=== PATIENT | female | born 1985 | race American Indian/Alaskan Native ===

== ENCOUNTER 2018-09-14 21:53 | Emergency (ER) | payer MEDICAID ==
--- NOTE | 2018-09-14 23:00 | EDM.PDOC ---
ED HPI GENERAL MEDICAL PROBLEM - General Chief Complaint: General Stated Complaint: NOT FEELING GOOD Time Seen by Provider: 09/14/18 22:58 Source of Information: Reports: Patient, RN, RN Notes Reviewed History Limitations: Reports: No Limitations - History of Present Illness INITIAL COMMENTS - FREE TEXT/NARRATIVE: Pt to ER with c/o generalized body aches and fever. Patient states the symptoms began about 2 days ago. Admits to sore throat, fever, nausea. Denies diarrhea or cough. States she works at [employer] and there have been several illnesses there. She also has several children. States temp was up to 101.5. Took Ibuprofen, down to 99 now. 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 - Related Data Allergies Allergy/AdvReac Type Severity Reaction Status Date / Time No Known Allergies Allergy Verified 10/31/15 17:34 Home Meds: Home Meds Pnv With Ca,No.72/Iron,Carb/FA [ Plus Iron Tablet] 1 tab PO DAILY [History] Acetaminophen/oxyCODONE [Percocet 325-5 MG] 2 tab PO Q4H PRN #30 tablet [Rx] Docusate Sodium [Colace] 100 mg PO Q12H PRN #60 cap 11/03/15 [Rx] Ferrous Sulfate 325 mg PO TIDMEALS #90 tablet 11/03/15 [Rx] Ibuprofen [IJD: Ibuprofen] 800 mg PO Q8H PRN #30 tablet 11/03/15 [Rx] Past Medical History 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 Hematologic History: Reports: Anemia - Infectious Disease History Infectious Disease History: Reports: Hepatitis C - Past Surgical History Female Surgical History: Reports: Section Social & Family History - Family History Family Medical History: Noncontributory ED ROS GENERAL - Review of Systems Review Of Systems: ROS reveals no pertinent complaints other than HPI. ED EXAM, GENERAL - Physical Exam Exam: See Below Exam Limited By: No Limitations General Appearance: Alert, WD/WN, No Apparent Distress Eye Exam: Bilateral Eye: EOMI, Normal Inspection Ears: Normal External Exam, Normal Canal, Hearing Grossly Normal, Normal TMs Nose: Normal Inspection, Normal Mucosa, No Blood Throat/Mouth: Normal Lips, Normal Teeth, Normal Gums, Normal Voice, No Airway Compromise, Other (oropharynx erythematous without exudate) Head: Atraumatic, Normocephalic Neck: Normal Inspection, Supple, Non-Tender, Full Range of Motion Respiratory/Chest: No Respiratory Distress, Lungs Clear, Normal Breath Sounds, No Accessory Muscle Use, Chest Non-Tender Cardiovascular: Normal Peripheral Pulses, Regular Rate, Rhythm, No Edema, No Gallop, No JVD, No Murmur, No Rub Peripheral Pulses: 2+: Radial (L), Radial (R) GI/Abdominal: Normal Bowel Sounds, Soft, Non-Tender (Female) Exam: Deferred Rectal (Female) Exam: Deferred Back Exam: Normal Inspection, Full Range of Motion, NT Extremities: Normal Inspection, Normal Range of Motion, Non-Tender, Normal Capillary Refill, No Pedal Edema Neurological: Alert, Oriented, CN II-XII Intact, Normal Cognition, Normal Gait, Normal Reflexes, No Motor/Sensory Deficits Psychiatric: Normal Affect, Normal Mood Skin Exam: Warm, Dry, Intact, Normal Color, No Rash Lymphatic: No Adenopathy Course - Orders/Labs/Meds Orders: Active Orders 24 hr Category Date Time Status CULTURE STREP A CONFIRMATION [] Stat Lab 09/14/18 23:05 Results STREP SCRN A RAPID W CULT CONF [] Stat Lab 09/14/18 23:05 Results Labs: Rapid Strep: Negative Influenza A: Negative Influenza B: Negative Departure - Departure Time of Disposition: 23:27 Disposition: Home, Self-Care 01 Condition: Fair Clinical Impression: Generalized body aches Fever Qualifiers: Fever type: unspecified Qualified Code(s): R50.9 - Fever, unspecified - Discharge Information *PRESCRIPTION DRUG MONITORING PROGRAM REVIEWED*: No *COPY OF PRESCRIPTION DRUG MONITORING REPORT IN PATIENT HENRY: No Instructions: Fever, Adult, [id number] Forms: ED Department Discharge Additional Instructions: Continue to use Tylenol and/or Ibuprofen as directed for fever/body aches Drink plenty of water Rest Follow up with your primary care facility if no improvement - My Orders Last 24 Hours: My Active Orders 09/14/18 23:05 CULTURE STREP A CONFIRMATION [RM] Stat STREP SCRN A RAPID W CULT CONF [] Stat - Assessment/Plan Last 24 Hours: My Active Orders 09/14/18 23:05 CULTURE STREP A CONFIRMATION [] Stat STREP SCRN A RAPID W CULT CONF [] Stat
[2018-09-14 23:58] VITALS: BP 122/71
== END 2018-09-14 23:55 | disposition home or self-care (01) ==
LOC: DL.ED 21:53
DX: R50.9 Fever, unspecified (principal); R52 Pain, unspecified; Z79.899 Other long term (current) drug therapy
CPT/HCPCS: 87081; 87430; 87804; 99283

== ENCOUNTER 2018-09-18 10:03 | Emergency (ER) | payer MEDICAID ==
[2018-09-18 10:15] VITALS: BP 114/71
[2018-09-18 11:14] LABS: ANION GAP 16.8; CHLORIDE,CL 102 mmol/L (101-111); SODIUM,NA 137 mmol/L (135-145)
[2018-09-18] MEDS ORDERED: Potassium Chloride 10 MEQ Tab.ER PO ONE (11:55)
--- NOTE | 2018-09-18 12:26 | EDM.PDOC ---
ED HPI GENERAL MEDICAL PROBLEM - General Chief Complaint: Respiratory Problem Stated Complaint: BACK PAINS [id number] Time Seen by Provider: 09/18/18 11:48 Source of Information: Reports: Patient, RN, RN Notes Reviewed History Limitations: Reports: No Limitations - History of Present Illness INITIAL COMMENTS - FREE TEXT/NARRATIVE: Pt to Er with c/o body aches, cough, green sputum, sore throat, SOB at times. She states she was seen in the ER on Thursday and she feels she is worsening. She states the fever has been better since Thursday. Denies N/V/D. Onset: Gradual Upper Back Pain Score (Numeric/FACES): 9 - Related Data Allergies Allergy/AdvReac Type Severity Reaction Status Date / Time No Known Allergies Allergy Verified 09/18/18 10:15 Home Meds: Home Meds Ibuprofen [IJD: Ibuprofen] 800 mg PO Q8H PRN #30 tablet 11/03/15 [Rx] Past Medical History - Past Health History Medical/Surgical History: Denies Medical/Surgical History HEENT History: Reports: None Cardiovascular History: Reports: None Respiratory History: Reports: None Gastrointestinal History: Reports: None Genitourinary History: Reports: None [employer] History: Reports: , Spontaneous Musculoskeletal History: Reports: None Neurological History: Reports: None Psychiatric History: Reports: Other (See Below) Other 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 Endocrine/Metabolic History: Reports: None Hematologic History: Reports: Anemia Immunologic History: Reports: None Oncologic (Cancer) History: Reports: None Dermatologic History: Reports: None - Infectious Disease History Infectious Disease History: Reports: Chicken Pox, Hepatitis C - Past Surgical History Head Surgeries/Procedures: Reports: None Female Surgical History: Reports: Section Social & Family History - Family History Family Medical History: Noncontributory - Tobacco Use Smoking Status *Q: Never Smoker Second Hand Smoke Exposure: No - Caffeine Use Caffeine Use: Reports: Coffee, Soda - Recreational Drug Use Recreational Drug Use: No ED ROS GENERAL - Review of Systems Review Of Systems: ROS reveals no pertinent complaints other than HPI. ED EXAM, GENERAL - Physical Exam Exam: See Below Exam Limited By: No Limitations General Appearance: Alert, WD/WN, No Apparent Distress Eye Exam: Bilateral Eye: EOMI, Normal Inspection Ears: Normal External Exam, Hearing Grossly Normal Nose: Normal Inspection Throat/Mouth: Normal Inspection, Normal Oropharynx, Normal Voice, No Airway Compromise Head: Atraumatic, Normocephalic Neck: Normal Inspection, Supple, Non-Tender, Full Range of Motion Respiratory/Chest: No Respiratory Distress, Decreased Breath Sounds, Rales Cardiovascular: Normal Peripheral Pulses, Regular Rate, Rhythm, No Edema, No Gallop, No JVD, No Murmur, No Rub Peripheral Pulses: 2+: Radial (L), Radial (R) GI/Abdominal: Normal Bowel Sounds, Soft, Non-Tender (Female) Exam: Deferred Rectal (Female) Exam: Deferred Back Exam: Normal Inspection, Full Range of Motion, NT Extremities: Normal Inspection, Normal Range of Motion, Non-Tender, Normal Capillary Refill, No Pedal Edema Neurological: Alert, Oriented, CN II-XII Intact, Normal Cognition, Normal Gait, Normal Reflexes, No Motor/Sensory Deficits Psychiatric: Normal Affect, Normal Mood Skin Exam: Warm, Dry, Intact, Normal Color, No Rash Lymphatic: No Adenopathy Course - Vital Signs Last Recorded V/S: Last Vital Signs Temp 97.8 F 09/18/18 10:09 Pulse 115 H 09/18/18 10:09 Resp 20 09/18/18 10:09 BP 114/71 09/18/18 10:09 Pulse Ox 100 09/18/18 10:09 - Orders/Labs/Meds Orders: Active Orders 24 hr Category Date Time Status Chest 2V [CR] Urgent Exams 09/18/18 10:26 Taken Labs: Laboratory Tests 09/18/18 09/18/18 Range/Units 10:50 10:50 WBC 16.0 H (5.0-10.0) 10^3/uL RBC 4.31 (4.2-5.4) 10^6/uL Hgb 11.4 L D (12.0-16.0) g/dL Hct 34.8 L (37.0-47.0) % MCV 80.7 D (80-100) fL MCH 26.5 L (27.0-34.0) pg MCHC 32.8 L (33.0-35.0) g/dL Plt Count 234 D (150-450) 10^3/uL Neut % (Auto) 86.8 H (42.2-75.2) % Lymph % (Auto) 6.6 L (20.5-50.1) % [place] % (Auto) 6.4 (2-8) % Eos % (Auto) 0.1 L (1.0-3.0) % Baso % (Auto) 0.1 (0.0-1.0) % Sodium 137 (135-145) mmol/L Potassium 2.8 L (3.6-5.0) mmol/L Chloride 102 (101-111) mmol/L Carbon Dioxide 21.0 (21.0-31.0) mmol/L Anion Gap 16.8 BUN 15 (7-18) mg/dL Creatinine 0.7 (0.6-1.3) mg/dL Est Cr Clr Drug Dosing 90.88 mL/min Estimated GFR (MDRD) > 60 BUN/Creatinine Ratio 21.42 Glucose 79 (74-105) mg/dL Calcium 7.6 L (8.4-10.2) mg/dl Total Bilirubin 0.9 (0.2-1.0) mg/dL AST 47 H (10-42) IU/L ALT 79 H (10-60) IU/L Alkaline Phosphatase 143 H (42-121) IU/L Total Protein 7.8 (6.7-8.2) g/dl Albumin 2.7 L (3.2-5.5) g/dl Globulin 5.1 Albumin/Globulin Ratio 0.53 Meds: Medications Discontinued Medications Generic Name Dose Route Start Last Admin Trade Name Freq PRN Reason Stop Dose Admin Potassium Chloride 40 meq 09/18/18 11:55 09/18/18 12:00 Klor-Con 10 PO 09/18/18 11:56 40 meq ONETIME ONE Administration - Radiology Interpretation Free Text/Narrative:: Chest xray: LLL Pneumonia Suspicion nodular densities See rad report Departure - Departure Time of Disposition: 12:25 Disposition: Home, Self-Care 01 Condition: Fair Clinical Impression: Hypokalemia Pneumonia Qualifiers: Pneumonia type: due to unspecified organism Laterality: left Lung location: lower lobe of lung Qualified Code(s): J18.1 - Lobar pneumonia, unspecified organism - Discharge Information *PRESCRIPTION DRUG MONITORING PROGRAM REVIEWED*: No *COPY OF PRESCRIPTION DRUG MONITORING REPORT IN PATIENT HENRY: No Instructions: Community-Acquired Pneumonia, Adult, Knid-wz-Pixj Forms: ED Department Discharge Additional Instructions: RX: Doxycycline, Potassium chloride Drink plenty of fluids Follow up with your primary care facility for CT of chest Continue to use Tylenol and/or Ibuprofen as directed for fever, pain May use over the counter robitussin for cough - My Orders Last 24 Hours: My Active Orders 09/18/18 10:26 Chest 2V [CR] Urgent - Assessment/Plan Last 24 Hours: My Active Orders 09/18/18 10:26 Chest 2V [CR] Urgent
--- NOTE | 2018-09-18 13:20 | CR ---
Clinical history: 33-year-old female with cough and productive "green" sputum. Interpretation: Abnormal. 1. Asymmetric dense left lower lobe pneumonic like consolidation (infarct?) with associated ipsilateral dependent effusion. 2. Ill-defined nodular densities identified respectively in the right upper and lingular segment left upper lobes. 3. Normal cardiac silhouette and bony thorax. No alveolar edema. 4. Right lung chacko clear without dependent pleural effusion. CONCLUSION: Abnormal inflammatory process left lower lobe i.e. pneumonia. Note: *See comments regarding suspicious nodular densities above. Parenchymal lesion? Costochondral cartilage calcifications? Follow-up to include possible CT scan chest recommended.
== END 2018-09-18 12:31 | disposition home or self-care (01) ==
LOC: DL.ED 10:03
DX: J18.1 Lobar pneumonia, unspecified organism (principal); E87.6 Hypokalemia
CPT/HCPCS: 36415; 71046; 80053; 85025; 99285; A9270

== ENCOUNTER 2018-09-21 14:55 | Emergency (ER) | payer MEDICAID ==
[2018-09-21 15:31] VITALS: BP 143/98
--- NOTE | 2018-09-21 15:50 | EDM.PDOC ---
ED HPI GENERAL MEDICAL PROBLEM - General Chief Complaint: General Stated Complaint: COMING FROM A CT SCAN Time Seen by Provider: 09/21/18 15:30 Source of Information: Reports: Patient History Limitations: Reports: No Limitations - History of Present Illness INITIAL COMMENTS - FREE TEXT/NARRATIVE: This 33 yo female patient was sent to the ED from the [facility] Dr. Dorantes. The patient was seeing Dr. Dorantes for a follow-up for possible lung nodules observed while the patient was seen in the ED on 09/18/18. The patient reports she has noticed increased abdominal bloating for the past 2 days and has had increased pain in her upper thighs when she gets up to walk. The patient reports she has not done any drugs for the past month, but wanted to have a more in depth conversation regarding drug use when no other staff was around. The patient does report some shortness of breath with activity. The patient was started on Doxycycline on 09/18/18 for a left lower lobe pneumonia. Once all nursing, lab and radiology staff were cleared out of the patient's room, the patient reports that she used to use meth, but has not used any in the past month. Onset: Gradual Duration: Day(s):, Constant, Getting Worse Location: Reports: Generalized Quality: Reports: Other Severity: Moderate Improves with: Reports: None Worsens with: Reports: None Context: Reports: Other Associated Symptoms: Reports: Shortness of Breath, Other Bilateral Upper Thigh Pain Score (Numeric/FACES): 8 - Related Data Allergies Allergy/AdvReac Type Severity Reaction Status Date / Time No Known Allergies Allergy Verified 09/21/18 15:37 Home Meds: Home Meds Ibuprofen [IJD: Ibuprofen] 800 mg PO Q8H PRN #30 tablet 11/03/15 [Rx] Past Medical History - Past Health History Medical/Surgical History: Denies Medical/Surgical History HEENT History: Reports: None Cardiovascular History: Reports: None Respiratory History: Reports: None Gastrointestinal History: Reports: None Genitourinary History: Reports: None POULTRY BONER History: Reports: , Spontaneous Musculoskeletal History: Reports: None Neurological History: Reports: None Psychiatric History: Reports: Other (See Below) Other 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 Endocrine/Metabolic History: Reports: None Hematologic History: Reports: Anemia Immunologic History: Reports: None Oncologic (Cancer) History: Reports: None Dermatologic History: Reports: None - Infectious Disease History Infectious Disease History: Reports: Chicken Pox, Hepatitis C - Past Surgical History Head Surgeries/Procedures: Reports: None Female Surgical History: Reports: Section Social & Family History - Family History Family Medical History: Noncontributory - Tobacco Use Smoking Status *Q: Never Smoker - Caffeine Use Caffeine Use: Reports: Coffee, Soda - Recreational Drug Use Recreational Drug Use: No ED ROS GENERAL - Review of Systems Review Of Systems: ROS reveals no pertinent complaints other than HPI. ED EXAM, GENERAL - Physical Exam Exam: See Below Exam Limited By: No Limitations General Appearance: Alert, WD/WN, Moderate Distress Eye Exam: Bilateral Eye: EOMI, Normal Inspection, PERRL Ears: Normal External Exam, Normal Canal, Hearing Grossly Normal, Normal TMs Nose: Normal Inspection, Normal Mucosa, No Blood Throat/Mouth: Normal Inspection, Normal Lips, Normal Teeth, Normal Gums, Normal Oropharynx, Normal Voice, No Airway Compromise Head: Atraumatic, Normocephalic Neck: Normal Inspection, Supple, Non-Tender, Full Range of Motion Respiratory/Chest: No Respiratory Distress, Lungs Clear, Normal Breath Sounds, No Accessory Muscle Use, Chest Non-Tender Cardiovascular: Normal Peripheral Pulses, Regular Rate, Rhythm, No Edema, No Gallop, No JVD, No Murmur, No Rub GI/Abdominal: Normal Bowel Sounds, Soft, No Organomegaly, No Distention, No Abnormal Bruit, No Mass, Tender (suprapubic tenderness to palpation) (Female) Exam: Deferred Rectal (Female) Exam: Deferred Back Exam: Normal Inspection, Full Range of Motion, NT Extremities: Normal Inspection, Normal Range of Motion, Non-Tender, Normal Capillary Refill, No Pedal Edema Neurological: Alert, Oriented, CN II-XII Intact, Normal Cognition, Normal Gait, Normal Reflexes, No Motor/Sensory Deficits Psychiatric: Normal Affect, Normal Mood Skin Exam: Warm, Dry, Intact, Normal Color, No Rash Lymphatic: No Adenopathy Course - Vital Signs Last Recorded V/S: Last Vital Signs Temp 38.1 C 09/21/18 15:30 Pulse 124 H 09/21/18 15:30 Resp 20 09/21/18 15:30 BP 143/98 H 09/21/18 15:30 Pulse Ox 100 09/21/18 15:30 - Orders/Labs/Meds Orders: Active Orders 24 hr Category Date Time Status CULTURE BLOOD [BC] Stat Lab 09/21/18 15:47 Received CULTURE BLOOD [BC] Stat Lab 09/21/18 15:55 Received Piperacillin/Tazobactam [Zosyn] 3.375 gm Med 09/21/18 16:51 Ordered Sodium Chloride 0.9% [Normal Saline] 100 ml IV ONETIME Vancomycin 1 gm Med 09/21/18 16:51 Ordered Sodium Chloride 0.9% [Normal Saline] 250 ml IV ONETIME Medication Orders Piperacillin Sod/Tazobactam (Sod 3.375 gm/ Sodium Chloride) 100 mls @ 200 mls/ hr IV ONETIME ONE Stop: 09/21/18 17:20 Vancomycin HCl 1 gm/ Sodium (Chloride) 250 mls @ 167 mls/hr IV ONETIME ONE Stop: 09/21/18 18:20 Labs: Laboratory Tests 09/21/18 09/21/18 09/21/18 Range/Units 15:13 15:13 15:13 WBC (5.0-10.0) 10^3/uL RBC (4.2-5.4) 10^6/uL Hgb (12.0-16.0) g/dL Hct (37.0-47.0) % MCV (80-100) fL MCH (27.0-34.0) pg MCHC (33.0-35.0) g/dL Plt Count (150-450) 10^3/uL Neut % (Auto) (42.2-75.2) % Lymph % (Auto) (20.5-50.1) % [place] % (Auto) (2-8) % Eos % (Auto) (1.0-3.0) % Baso % (Auto) (0.0-1.0) % Add Manual Diff Neutrophils % (Manual) (42-75) % Band Neutrophils % % Lymphocytes % (Manual) (20-50) % Atypical Lymphs % % Monocytes % (Manual) (2-8) % Sodium (135-145) mmol/L Potassium (3.6-5.0) mmol/L Chloride (101-111) mmol/L Carbon Dioxide (21.0-31.0) mmol/L Anion Gap BUN (7-18) mg/dL Creatinine (0.6-1.3) mg/dL Est Cr Clr Drug Dosing mL/min Estimated GFR (MDRD) BUN/Creatinine Ratio Glucose (74-105) mg/dL Lactic Acid (0.5-2.2) mmol/L Calcium (8.4-10.2) mg/dl Total Bilirubin (0.2-1.0) mg/dL AST (10-42) IU/L ALT (10-60) IU/L Alkaline Phosphatase (42-121) IU/L Total Protein (6.7-8.2) g/dl Albumin (3.2-5.5) g/dl Globulin Albumin/Globulin Ratio Urine Color Yellow (YELLOW) Urine Appearance Slightly cloudy (CLEAR) Urine pH 7.0 (5.0-9.0) Ur Specific [place] 1.015 (1.005-1.030) Urine Protein 30 H (NEGATIVE) Urine Glucose (UA) Negative (NEGATIVE) Urine Ketones Negative (NEGATIVE) Urine Occult Blood Trace-intact H (NEGATIVE) Urine Nitrite Negative (NEGATIVE) Urine Bilirubin Negative (NEGATIVE) Urine Urobilinogen 2.0 H (0.2-1.0) mg/dL Ur Leukocyte Esterase Negative (NEGATIVE) Urine RBC 10-20 H /HPF Urine WBC 5-10 H (0-5/HPF) /HPF Ur Epithelial Cells Few /HPF Amorphous Sediment Rare (0/HPF) /HPF Urine Bacteria Rare (0-FEW/HPF) /HPF Urine Mucus Rare /LPF Urine HCG, Qual Negative Salicylates mg/dL Urine Opiates Screen Negative (NEGATIVE) Ur Oxycodone Screen Negative (NEGATIVE) Urine Methadone Screen Negative (NEGATIVE) Acetaminophen ug/mL Ur Barbiturates Screen Negative (NEGATIVE) U Tricyclic Antidepress Negative (NEGATIVE) Ur Phencyclidine Scrn Negative (NEGATIVE) Ur Amphetamine Screen Negative (NEGATIVE) U Methamphetamines Scrn Negative (NEGATIVE) Urine MDMA Screen Negative (NEGATIVE) U Benzodiazepines Scrn Negative (NEGATIVE) Urine Cocaine Screen Negative (NEGATIVE) U Marijuana (THC) Screen Negative (NEGATIVE) 09/21/18 09/21/18 09/21/18 Range/Units 15:47 15:47 15:47 WBC 11.7 H (5.0-10.0) 10^3/uL RBC 3.35 L (4.2-5.4) 10^6/uL Hgb 8.7 L D (12.0-16.0) g/dL Hct 27.1 L (37.0-47.0) % MCV 80.9 (80-100) fL MCH 26.0 L (27.0-34.0) pg MCHC 32.1 L (33.0-35.0) g/dL Plt Count 318 D (150-450) 10^3/uL Neut % (Auto) 77.6 H (42.2-75.2) % Lymph % (Auto) 13.5 L (20.5-50.1) % [place] % (Auto) 8.5 H (2-8) % Eos % (Auto) 0.3 L (1.0-3.0) % Baso % (Auto) 0.1 (0.0-1.0) % Add Manual Diff Yes Neutrophils % (Manual) 65 (42-75) % Band Neutrophils % 6 % Lymphocytes % (Manual) 21 (20-50) % Atypical Lymphs % 2 % Monocytes % (Manual) 6 (2-8) % Sodium (135-145) mmol/L Potassium (3.6-5.0) mmol/L Chloride (101-111) mmol/L Carbon Dioxide (21.0-31.0) mmol/L Anion Gap BUN (7-18) mg/dL Creatinine (0.6-1.3) mg/dL Est Cr Clr Drug Dosing mL/min Estimated GFR (MDRD) BUN/Creatinine Ratio Glucose (74-105) mg/dL Lactic Acid 1.0 (0.5-2.2) mmol/L Calcium (8.4-10.2) mg/dl Total Bilirubin (0.2-1.0) mg/dL AST (10-42) IU/L ALT (10-60) IU/L Alkaline Phosphatase (42-121) IU/L Total Protein (6.7-8.2) g/dl Albumin (3.2-5.5) g/dl Globulin Albumin/Globulin Ratio Urine Color (YELLOW) Urine Appearance (CLEAR) Urine pH (5.0-9.0) Ur Specific [place] (1.005-1.030) Urine Protein (NEGATIVE) Urine Glucose (UA) (NEGATIVE) Urine Ketones (NEGATIVE) Urine Occult Blood (NEGATIVE) Urine Nitrite (NEGATIVE) Urine Bilirubin (NEGATIVE) Urine Urobilinogen (0.2-1.0) mg/dL Ur Leukocyte Esterase (NEGATIVE) Urine RBC /HPF Urine WBC (0-5/HPF) /HPF Ur Epithelial Cells /HPF Amorphous Sediment (0/HPF) /HPF Urine Bacteria (0-FEW/HPF) /HPF Urine Mucus /LPF Urine HCG, Qual Salicylates < 4 mg/dL Urine Opiates Screen (NEGATIVE) Ur Oxycodone Screen (NEGATIVE) Urine Methadone Screen (NEGATIVE) Acetaminophen < 10 ug/mL Ur Barbiturates Screen (NEGATIVE) U Tricyclic Antidepress (NEGATIVE) Ur Phencyclidine Scrn (NEGATIVE) Ur Amphetamine Screen (NEGATIVE) U Methamphetamines Scrn (NEGATIVE) Urine MDMA Screen (NEGATIVE) U Benzodiazepines Scrn (NEGATIVE) Urine Cocaine Screen (NEGATIVE) U Marijuana (THC) Screen (NEGATIVE) 09/21/18 Range/Units 15:47 WBC (5.0-10.0) 10^3/uL RBC (4.2-5.4) 10^6/uL Hgb (12.0-16.0) g/dL Hct (37.0-47.0) % MCV (80-100) fL MCH (27.0-34.0) pg MCHC (33.0-35.0) g/dL Plt Count (150-450) 10^3/uL Neut % (Auto) (42.2-75.2) % Lymph % (Auto) (20.5-50.1) % [place] % (Auto) (2-8) % Eos % (Auto) (1.0-3.0) % Baso % (Auto) (0.0-1.0) % Add Manual Diff Neutrophils % (Manual) (42-75) % Band Neutrophils % % Lymphocytes % (Manual) (20-50) % Atypical Lymphs % % Monocytes % (Manual) (2-8) % Sodium 132 L (135-145) mmol/L Potassium 3.6 (3.6-5.0) mmol/L Chloride 102 (101-111) mmol/L Carbon Dioxide 19.0 L (21.0-31.0) mmol/L Anion Gap 14.6 BUN 13 (7-18) mg/dL Creatinine 0.6 (0.6-1.3) mg/dL Est Cr Clr Drug Dosing 105.83 mL/min Estimated GFR (MDRD) > 60 BUN/Creatinine Ratio 21.66 Glucose 94 (74-105) mg/dL Lactic Acid (0.5-2.2) mmol/L Calcium 7.1 L (8.4-10.2) mg/dl Total Bilirubin 0.6 (0.2-1.0) mg/dL AST 21 (10-42) IU/L ALT 28 (10-60) IU/L Alkaline Phosphatase 110 (42-121) IU/L Total Protein 6.9 (6.7-8.2) g/dl Albumin 2.0 L (3.2-5.5) g/dl Globulin 4.9 Albumin/Globulin Ratio 0.41 Urine Color (YELLOW) Urine Appearance (CLEAR) Urine pH (5.0-9.0) Ur Specific [place] (1.005-1.030) Urine Protein (NEGATIVE) Urine Glucose (UA) (NEGATIVE) Urine Ketones (NEGATIVE) Urine Occult Blood (NEGATIVE) Urine Nitrite (NEGATIVE) Urine Bilirubin (NEGATIVE) Urine Urobilinogen (0.2-1.0) mg/dL Ur Leukocyte Esterase (NEGATIVE) Urine RBC /HPF Urine WBC (0-5/HPF) /HPF Ur Epithelial Cells /HPF Amorphous Sediment (0/HPF) /HPF Urine Bacteria (0-FEW/HPF) /HPF Urine Mucus /LPF Urine HCG, Qual Salicylates mg/dL Urine Opiates Screen (NEGATIVE) Ur Oxycodone Screen (NEGATIVE) Urine Methadone Screen (NEGATIVE) Acetaminophen ug/mL Ur Barbiturates Screen (NEGATIVE) U Tricyclic Antidepress (NEGATIVE) Ur Phencyclidine Scrn (NEGATIVE) Ur Amphetamine Screen (NEGATIVE) U Methamphetamines Scrn (NEGATIVE) Urine MDMA Screen (NEGATIVE) U Benzodiazepines Scrn (NEGATIVE) Urine Cocaine Screen (NEGATIVE) U Marijuana (THC) Screen (NEGATIVE) Meds: Medications Generic Name Dose Route Start Last Admin Trade Name Freq PRN Reason Stop Dose Admin Piperacillin Sod/Tazobactam 100 mls @ 200 mls/hr 09/21/18 16:51 Sod 3.375 gm/ Sodium Chloride IV 09/21/18 17:20 ONETIME ONE Vancomycin HCl 1 gm/ Sodium 250 mls @ 167 mls/hr 09/21/18 16:51 Chloride IV 09/21/18 18:20 ONETIME ONE Departure - Departure Time of Disposition: 16:53 Disposition: Home, Self-Care 01 Condition: Poor Clinical Impression: Pleural effusion, Abdominal abscess Sepsis Qualifiers: Sepsis type: sepsis due to unspecified organism Qualified Code(s): A41.9 - Sepsis, unspecified organism - Discharge Information *PRESCRIPTION DRUG MONITORING PROGRAM REVIEWED*: Not Applicable *COPY OF PRESCRIPTION DRUG MONITORING REPORT IN PATIENT HENRY: Not Applicable Forms: Interfacility Transfer EMTALA Care Plan Goals: Discussed the patient's history, examination, treatments, CT results and symptoms with Dr. Meléndez. Dr. Meléndez accepted the patient for continued evaluation and treatment at [facility] in [place]. The patient will be transported by [facility]. - My Orders Last 24 Hours: My Active Orders 09/21/18 15:47 CULTURE BLOOD [BC] Stat 09/21/18 15:55 CULTURE BLOOD [BC] Stat 09/21/18 16:51 Piperacillin/Tazobactam [Zosyn] 3.375 gm Sodium Chloride 0.9% [Normal Saline] 100 ml IV ONETIME Vancomycin 1 gm Sodium Chloride 0.9% [Normal Saline] 250 ml IV ONETIME - Assessment/Plan Last 24 Hours: My Active Orders 09/21/18 15:47 CULTURE BLOOD [BC] Stat 09/21/18 15:55 CULTURE BLOOD [BC] Stat 09/21/18 16:51 Piperacillin/Tazobactam [Zosyn] 3.375 gm Sodium Chloride 0.9% [Normal Saline] 100 ml IV ONETIME Vancomycin 1 gm Sodium Chloride 0.9% [Normal Saline] 250 ml IV ONETIME
[2018-09-21 16:23] LABS: ANION GAP 14.6; CHLORIDE,CL 102 mmol/L (101-111); SODIUM,NA 132 mmol/L (135-145)
[2018-09-21 16:24] LABS: ACETAMINOPHEN < 10 ug/mL
[2018-09-21] MEDS ORDERED: Piperacillin/Tazobactam 3.375 GM in Sodium Chloride 0.9% 100 ML IV ONE (16:51)
== END 2018-09-21 17:46 | disposition home or self-care (01) ==
LOC: DL.ED 14:55
DX: A41.9 Sepsis, unspecified organism (principal); L02.211 Cutaneous abscess of abdominal wall; J90 Pleural effusion, not elsewhere classified
CPT/HCPCS: 36415; 80053; 80305-QW; 81001; 81025; 83605; 85025; 87040; 87077; 87186; 96365; 96368; 99283-25; G0480; J2543; J3370; J7050

== ENCOUNTER 2018-09-30 14:43 | Inpatient (IN) | payer MEDICAID ==
[2018-09-30] MEDS ORDERED: Acetaminophen 325 MG Tab PO PRN (16:17)
[2018-09-30] MEDS ORDERED: Ibuprofen 800 MG Tab PO PRN (16:17)
[2018-09-30] MEDS ORDERED: Ondansetron 4 MG Tab.DIS PO PRN (16:17)
[2018-09-30] MEDS: oxyCODONE 5 MG Tab PO PRN ×2 (16:37→21:28)
[2018-09-30] MEDS ORDERED: Alteplase 2 MG Vial IVPUSH PRN (16:37)
[2018-09-30] MEDS ORDERED: HYDROmorphone 0.5 MG/0.5 ML Syringe IVPUSH PRN (17:16)
[2018-09-30] MEDS ORDERED: diphenhydrAMINE 50 MG Cap PO ONE (17:23)
[2018-09-30] MEDS ORDERED: Triamcinolone Acetonide 0.1% Crm 15 GM Tube TOP SCH (21:00)
[2018-09-30] MEDS: Nafcillin 2 GM in Sodium Chloride 0.9% 100 ML IV SCH (21:27)
[2018-09-30] MEDS: Naproxen 500 MG Tab PO SCH (21:28)
[2018-09-30] MEDS: Triamcinolone Acetonide 0.1% Crm 15 GM Tube TOP SCH (21:29)
--- NOTE | 2018-10-01 00:17 | HP ---
HISTORY OF PRESENT ILLNESS: Nguyen is a 33-year-old woman who initially presented to the [facility] on 09/21/2018 with 48-hour history of abdominal bloating as well as fevers and chills and shortness of breath. She had been diagnosed on 09/18/2018 with pneumonia and placed on doxycycline. When she presented on the , ED doctor was able to determine that unfortunately, Nguyen is an IV drug user and had been using methamphetamine. She reported only having used 3 to 4 weeks prior to her presentation date. Workup done in the ER showed pelvic abscess as well as what appeared to be septic emboli to her lungs. She was transferred to [facility] for further workup and evaluation. At [facility], she was found to have septic pulmonary emboli as well as suprapubic abscess and concerning findings on her echocardiogram for possible occult endocarditis. She was placed on IV nafcillin and IV vancomycin. Just prior to her discharge to [facility] here, her blood cultures had come up negative, so the vancomycin was discontinued. She was sent to [facility] today for a 6-week course of IV nafcillin as well as careful monitoring of her other medical issues. Nguyen reports that other than the pain from the drainage tube from her abdomen that she has, she is overall feeling well. She is still feeling quite tired. I do note in her chart as well that she has had a chronic normocytic anemia. I do not see any recent iron studies or any other studies to determine what the source of this is. PAST MEDICAL HISTORY: 1. 7, para 6-1-0-7, section x7. 2. Noted hepatitis C identified at this last admission. 3. Nguyen does not report any past history of mental health issues including anxiety or depression. 4. As stated above, she does admit to a significant past history of polysubstance abuse, including methamphetamine via IV and pain medication. PAST SURGICAL HISTORY: section x7. SOCIAL HISTORY: Nguyen lives in [place] and up into her hospitalization had 1 baby living with her. Her other children live with their grandmother. She was prior to her hospitalization in rehab and doing court-ordered rehab. Nguyen is very concerned about being able to see her children, we have already reassured her that we will make all attempts to keep that a very lively part of her admission here. FAMILY HISTORY: Mother has diabetes. She does not report any significant past history of heart disease. REVIEW OF SYSTEMS: Nguyen does not report any new review of systems over the last 2 days, as stated in the HPI, she has been feeling well. PHYSICAL EXAMINATION: Vital Signs: Blood pressure is 125/68, pulse is 100, respiratory rate 20, O2 saturations 100% on room air and temperature is afebrile. Weight is 59.2 kg. General: Nguyen is a 33-year-old woman in no acute distress. She is alert and oriented x3. HEENT: Oropharynx is clear. Mucous membranes are moist. ASSESSMENT: 1. A 33-year-old woman with noted recent history of suprapubic abscess as well as septic emboli, blood cultures have been positive for methicillin sensitive Staph aureus. 2. Status post IR drainage of abscess with drainage tube in place. 3. Chronic anemia, normocytic, most likely secondary to hemolysis as well as nutritional factors. 4. Recent history of IV drug use, most likely the source of problems identified in #1. 5. Acute hepatitis C infection. 6. Acute hepatitis A infection. PLAN: 1. She is admitted to [facility] today. 2. We are receiving orders from Infectious Disease for her nafcillin, IV q.4 hours via PICC line. 3. Ibuprofen/acetaminophen ordered for fever and pain. 4. Oxycodone 5 mg q.4 hours is also ordered for pain, as she does have a known pelvic abscess which has a drainage tube in place. 5. As stated above, chart review from [facility] shows that her most recent blood culture was negative, I do note that she had an elevated sed rate and CRP, we will repeat those tomorrow morning. 6. In order to better identify the source of her chronic anemia, I will send out iron studies as well as a folate and B12 level. It is very likely that the IV drug use was causing a hemolysis that has significantly contributed to this, but if there is any nutritional component, we should be able to correct that while she is inpatient here. 7. She has been on ferrous sulfate for the past 10 days during her hospitalization at [facility], I do think we will switch to an every other day format to see if she is absorbing that any better. 8. I have ordered a dietary consult to see if they have any thoughts regarding her diet to see if we can help replace any nutritional deficiencies 9. As stated above, I discussed with Nguyen that she needs to be open with us regarding any depression or anxiety as well as her frustrations. A 6-week hospitalization for IV antibiotics will most likely be stressful for her, especially with her recent attempts to get off her polysubstance abuse. I do think social insurance analyst can be very helpful in this instance, making sure that Nguyen has good contact with her family, and is not feeling isolated. I would highly encourage them to stay closely involved with her case to assist us with this. [facility] /[id number] EDELMIRA
[2018-10-01] MEDS: Nafcillin 2 GM in Sodium Chloride 0.9% 100 ML IV SCH ×4 (00:57→14:39)
[2018-10-01] MEDS: oxyCODONE 5 MG Tab PO PRN ×4 (08:10→20:32)
[2018-10-01] MEDS: Naproxen 500 MG Tab PO SCH ×2 (08:10→20:32)
[2018-10-01] MEDS: Triamcinolone Acetonide 0.1% Crm 15 GM Tube TOP SCH ×2 (08:16→21:48)
[2018-10-01] MEDS ORDERED: HYDROmorphone 0.5 MG/0.5 ML Syringe IVPUSH PRN (08:30)
[2018-10-01] MEDS ORDERED: Ondansetron 4 MG Tab.DIS PO PRN (08:30)
[2018-10-01] MEDS ORDERED: Ibuprofen 800 MG Tab PO PRN (08:30)
[2018-10-01] MEDS ORDERED: diphenhydrAMINE 50 MG Cap PO ONE (10:15)
[2018-10-01] MEDS: Acetaminophen 325 MG Tab PO PRN (12:17)
[2018-10-01] MEDS: Sodium Chloride 0.9% 10 ML Syringe FLUSH PRN ×3 (15:55→22:19)
[2018-10-01] MEDS: ceFAZolin 2 GM in Premix Bag 1 BAG IV SCH ×2 (15:55→21:44)
[2018-10-01] MEDS ORDERED: diphenhydrAMINE 25 MG Tab PO ONE (22:06)
[2018-10-02] MEDS: ceFAZolin 2 GM in Premix Bag 1 BAG IV SCH (05:35)
[2018-10-02] MEDS: oxyCODONE 5 MG Tab PO PRN ×3 (08:53→17:15)
[2018-10-02] MEDS: Naproxen 500 MG Tab PO SCH ×2 (08:53→20:36)
[2018-10-02] MEDS: Triamcinolone Acetonide 0.1% Crm 15 GM Tube TOP SCH ×2 (08:56→20:39)
[2018-10-02] MEDS: Ferrous Sulfate 325 MG Tab PO SCH (08:58)
[2018-10-02] MEDS ORDERED: DAPTOmycin 500 MG Vial IV SCH (09:30)
[2018-10-02 10:08] LABS: ANION GAP 12.4; CHLORIDE,CL 104 mmol/L (101-111); SODIUM,NA 133 mmol/L (135-145)
[2018-10-02] MEDS: Sodium Chloride 0.9% 10 ML Syringe FLUSH PRN ×2 (11:28→20:43)
[2018-10-02] MEDS ORDERED: diphenhydrAMINE 25 MG Tab PO ONE (13:09)
[2018-10-03] MEDS: Naproxen 500 MG Tab PO SCH ×2 (09:48→22:18)
[2018-10-03] MEDS: Triamcinolone Acetonide 0.1% Crm 15 GM Tube TOP SCH ×2 (09:48→22:20)
[2018-10-03] MEDS: oxyCODONE 5 MG Tab PO PRN ×4 (10:23→22:18)
[2018-10-03] MEDS: Sodium Chloride 0.9% 10 ML Syringe FLUSH PRN (11:57)
[2018-10-04] MEDS: Naproxen 500 MG Tab PO SCH ×2 (08:13→22:30)
[2018-10-04] MEDS: oxyCODONE 5 MG Tab PO PRN ×4 (08:13→22:31)
[2018-10-04] MEDS: Triamcinolone Acetonide 0.1% Crm 15 GM Tube TOP SCH ×2 (08:14→22:30)
--- NOTE | 2018-10-04 09:12 | PN ---
DATE: 10/01/2018 SUBJECTIVE: I was called to see Nguyen this morning as she had developed a full body macular rash. I did note that she had a small rash around the area of her PICC line yesterday when she was admitted, but it appeared to be more of a reaction to the bandage than anything else. However, over the night, the rash did spread to the rest of her body and it is severely itchy. She is not having any shortness of breath or any vomiting. OBJECTIVE: Vital Signs: This morning were stable. She is afebrile. General: Nguyen is a 33-year-old woman, in no acute distress. As stated above, she has a macular rash throughout almost every area of her body. There is no wheal or flare formation noted. Her breathing is comfortable at this time. ASSESSMENT: A 33-year-old woman here in swing bed for IV treatment of bilateral septic emboli of the lungs as well as persistent abscess of the abdomen. PLAN: I did talk to Infectious Disease to [facility] in [place], they recommended discontinuing the nafcillin and starting her on Ancef, 2 g every 8 hours IV. Those orders were made. We will continue to use some diphenhydramine and some triamcinolone cream to help with her rash. Fortunately, the nafcillin half-life is very short, so that should resolve fairly quickly for her. [facility] /[id number]
[2018-10-04] MEDS: Ferrous Sulfate 325 MG Tab PO SCH (09:23)
[2018-10-04] MEDS ORDERED: Iopamidol 612 MG/ML 75 ML Bottle IVPUSH ONE (18:02)
[2018-10-04] MEDS: Acetaminophen 325 MG Tab PO PRN (18:18)
[2018-10-04 18:40] LABS: ANION GAP 13.5; CHLORIDE,CL 105 mmol/L (101-111); SODIUM,NA 136 mmol/L (135-145)
[2018-10-05] MEDS: Triamcinolone Acetonide 0.1% Crm 15 GM Tube TOP SCH ×2 (09:29→21:32)
[2018-10-05] MEDS: oxyCODONE 5 MG Tab PO PRN ×4 (09:30→22:47)
[2018-10-05] MEDS: Naproxen 500 MG Tab PO SCH ×2 (09:30→21:32)
[2018-10-05] MEDS: Sodium Chloride 0.9% 10 ML Syringe FLUSH PRN (11:15)
[2018-10-06] MEDS: oxyCODONE 5 MG Tab PO PRN ×4 (06:19→21:23)
[2018-10-06] MEDS: Triamcinolone Acetonide 0.1% Crm 15 GM Tube TOP SCH ×2 (09:29→20:16)
[2018-10-06] MEDS: Naproxen 500 MG Tab PO SCH ×2 (09:30→20:16)
[2018-10-06] MEDS: Sodium Chloride 0.9% 10 ML Syringe FLUSH PRN (09:34)
[2018-10-06] MEDS: Ferrous Sulfate 325 MG Tab PO SCH (10:13)
[2018-10-07] MEDS: oxyCODONE 5 MG Tab PO PRN ×3 (08:57→19:34)
[2018-10-07] MEDS: Naproxen 500 MG Tab PO SCH ×2 (08:57→21:04)
[2018-10-07] MEDS: Triamcinolone Acetonide 0.1% Crm 15 GM Tube TOP SCH ×2 (08:58→21:07)
[2018-10-07] MEDS: Sodium Chloride 0.9% 10 ML Syringe FLUSH PRN ×2 (12:29→21:04)
[2018-10-08] MEDS: oxyCODONE 5 MG Tab PO PRN ×2 (09:25→13:58)
[2018-10-08] MEDS: Naproxen 500 MG Tab PO SCH (09:25)
[2018-10-08] MEDS: Ferrous Sulfate 325 MG Tab PO SCH (09:26)
[2018-10-08] MEDS: Triamcinolone Acetonide 0.1% Crm 15 GM Tube TOP SCH (09:28)
[2018-10-08 10:17] VITALS: BP 115/68
[2018-10-08] MEDS: Sodium Chloride 0.9% 10 ML Syringe FLUSH PRN (12:29)
--- NOTE | 2018-10-08 16:30 | PCM.DCSUM1 ---
Discharge Summary - Hospital Course Free Text/Narrative:: Ms Figueroa is a 33-year-old female with past medical history significant for IV drug use presented initially to help her clinic on 09/21/2018 with abdominal pain and bloating fevers and chills and shortness of breath. Prior to that she was treated for pneumonia with doxycycline. On her presentation she was found to have pelvic abscess and septic emboli to the lungs. She was initially sent to [facility] was later discharged on IV antibiotics. There is concern for infective endocarditis on echo cardiogram. Patient was admitted to [facility] hospital bed for IV antibiotics. Patient was seen by ID today, and PICC line was pulled. Patient will be discharged home, with plans for her to come back daily to get antibiotics to finish her course. - Discharge Data Discharge Date: 10/08/18 Discharge Disposition: Home, Self-Care 01 Condition: Good - Patient Summary/Data Consults: Consultations 10/01/18 09:00 Consult to Dietary [Consult to Medical Charge Entry Specialist] [CONS] Routine - Discharge Plan *PRESCRIPTION DRUG MONITORING PROGRAM REVIEWED*: No *COPY OF PRESCRIPTION DRUG MONITORING REPORT IN PATIENT HENRY: No Home Medications: Home Meds Ferrous Sulfate 325 mg PO BIDMEALS 09/30/18 [History] Ferrous Sulfate 325 mg PO Q48H tablet 10/08/18 [Rx] Ibuprofen [Motrin] 800 mg PO Q8HR PRN tablet 10/08/18 [Rx] - Discharge Summary/Plan Comment DC Time >30 min.: Yes - General Info Date of Service: 10/08/18 Admission Dx/Problem (Free Text: Septic emboli - Review of Systems General: Reports: No Symptoms HEENT: Reports: No Symptoms Pulmonary: Reports: No Symptoms Cardiovascular: Reports: No Symptoms Gastrointestinal: Reports: No Symptoms Genitourinary: Reports: No Symptoms Musculoskeletal: Reports: No Symptoms Skin: Reports: No Symptoms Neurological: Reports: No Symptoms Psychiatric: Reports: No Symptoms - Patient Data Vitals - Most Recent: Last Vital Signs Temp 36.9 C 10/08/18 08:00 Pulse 78 10/08/18 08:00 Resp 20 10/08/18 08:00 BP 115/68 10/08/18 08:00 Pulse Ox 100 10/08/18 08:00 Weight - Most Recent: 65.544 kg I&O - Last 24 hours: Intake & Output 10/08/18 10/08/18 10/08/18 06:59 14:59 22:59 Intake Total 170 Balance 170 Lab Results - Last 24 hrs: Laboratory Results - last 24 hr 10/08/18 10/08/18 10/08/18 Range/Units 05:45 05:45 05:45 WBC 5.6 (5.0-10.0) 10^3/uL RBC 2.70 L (4.2-5.4) 10^6/uL Hgb 7.1 L (12.0-16.0) g/dL Hct 24.0 L (37.0-47.0) % MCV 88.9 (80-100) fL MCH 26.3 L (27.0-34.0) pg MCHC 29.6 L (33.0-35.0) g/dL Plt Count 606 H D (150-450) 10^3/uL Neut % (Auto) 62.7 (42.2-75.2) % Lymph % (Auto) 27.3 (20.5-50.1) % [place] % (Auto) 7.3 (2-8) % Eos % (Auto) 2.0 (1.0-3.0) % Baso % (Auto) 0.7 (0.0-1.0) % ESR 99 H (0-20) mm/hr Creatinine 0.6 (0.6-1.3) mg/dL Est Cr Clr Drug Dosing 121.13 mL/min Estimated GFR (MDRD) > 60 ALT 29 (10-60) IU/L Creatine Kinase (26-174) IU/L C-Reactive Protein 0.9 (0.0-1.3) mg/dL 10/08/18 Range/Units 05:45 WBC (5.0-10.0) 10^3/uL RBC (4.2-5.4) 10^6/uL Hgb (12.0-16.0) g/dL Hct (37.0-47.0) % MCV (80-100) fL MCH (27.0-34.0) pg MCHC (33.0-35.0) g/dL Plt Count (150-450) 10^3/uL Neut % (Auto) (42.2-75.2) % Lymph % (Auto) (20.5-50.1) % [place] % (Auto) (2-8) % Eos % (Auto) (1.0-3.0) % Baso % (Auto) (0.0-1.0) % ESR (0-20) mm/hr Creatinine (0.6-1.3) mg/dL Est Cr Clr Drug Dosing mL/min Estimated GFR (MDRD) ALT (10-60) IU/L Creatine Kinase 21 L (26-174) IU/L C-Reactive Protein (0.0-1.3) mg/dL Med Orders - Current: Current Medications Acetaminophen (Tylenol) 650 mg PO Q4HR PRN PRN Reason: Pain (Mild 1-3)/fever Last Admin: 10/04/18 18:18 Dose: 650 mg Alteplase, Recombinant (Cathflo Activase) 2 mg IVPUSH ONETIME PRN PRN Reason: IV Use Ferrous Sulfate (Ferrous Sulfate) 325 mg PO Q48H [facility] Last Admin: 10/08/18 09:26 Dose: 325 mg Hydromorphone HCl (Dilaudid) 0.5 mg IVPUSH Q4HR PRN PRN Reason: Pain (severe 7-10) Daptomycin 360 mg/ Sodium (Chloride) 50 mls @ 100 mls/hr IV Q24H [facility] Last Infusion: 10/08/18 13:00 Dose: Infused Ibuprofen (Motrin) 800 mg PO Q8HR PRN PRN Reason: Pain (mild 1-3), use 2nd Last Admin: 10/04/18 14:00 Dose: 800 mg Naproxen (Naprosyn) 500 mg PO Q12HR [facility] Last Admin: 10/08/18 09:25 Dose: 500 mg Ondansetron HCl (Zofran Odt) 4 mg PO Q6HR PRN PRN Reason: nausea, able to take PO Oxycodone HCl (Oxycodone) 5 mg PO Q4HR PRN PRN Reason: Pain (moderate 4-6) Last Admin: 10/08/18 13:58 Dose: 5 mg Senna/Docusate Sodium (Senna Plus) 1 tab PO BEDTIME PRN PRN Reason: Constipation Sodium Chloride (Saline Flush) 10 ml FLUSH ASDIRECTED PRN PRN Reason: Keep Vein Open Last Admin: 10/08/18 12:29 Dose: 10 ml Triamcinolone Acetonide (Triamcinolone Acetonide 0.1% Crm) 0 gm TOP BID [facility] Last Admin: 10/08/18 09:28 Dose: Not Given Discontinued Medications Acetaminophen (Tylenol) 650 mg PO Q4H PRN PRN Reason: Pain (Mild 1-3)/fever Daptomycin (Cubicin) 360 mg 6 mg/kg (360 mg) IV Q24H [facility] Last Admin: 10/02/18 09:47 Dose: Not Given Diphenhydramine HCl (Benadryl) 50 mg PO ONETIME ONE Stop: 09/30/18 17:24 Last Admin: 09/30/18 18:04 Dose: 50 mg Diphenhydramine HCl (Benadryl) 50 mg PO ONETIME ONE Stop: 10/01/18 10:16 Last Admin: 10/01/18 10:34 Dose: 50 mg Diphenhydramine HCl (Benadryl) 25 mg PO ONETIME ONE Stop: 10/01/18 22:07 Last Admin: 10/01/18 22:18 Dose: 25 mg Diphenhydramine HCl (Benadryl) 25 mg PO ONETIME ONE Stop: 10/02/18 13:10 Last Admin: 10/02/18 13:13 Dose: 25 mg Hydromorphone HCl (Dilaudid) 0.5 mg IVPUSH Q4H PRN PRN Reason: Pain Nafcillin Sodium 2 gm/ Sodium (Chloride) 100 mls @ 100 mls/hr IV Q4H [facility] Last Admin: 10/01/18 05:17 Dose: 100 mls/hr Nafcillin Sodium 2 gm/ Sodium (Chloride) 100 mls @ 100 mls/hr IV Q4HR [facility] Last Admin: 10/01/18 14:39 Dose: Not Given Cefazolin Sodium/Dextrose 2 gm (/ Premix) 50 mls @ 100 mls/hr IV Q8HR [facility] Last Admin: 10/02/18 05:35 Dose: Not Given Daptomycin 360 mg/ Sodium (Chloride) 50 mls @ 100 mls/hr IV Q24H [facility] Last Admin: 10/05/18 11:10 Dose: 100 mls/hr Daptomycin 360 mg/ Sodium (Chloride) 50 mls @ 100 mls/hr IV Q24H [facility] Last Admin: 10/07/18 12:15 Dose: Not Given Daptomycin 360 mg/ Sodium (Chloride) 50 mls @ 100 mls/hr IV Q24H [facility] Ibuprofen (Motrin) 800 mg PO Q8H PRN PRN Reason: Pain (mild 1-3) Last Admin: 09/30/18 19:12 Dose: 800 mg Iopamidol (Isovue-300 (61%)) 75 ml IVPUSH ONETIME ONE Stop: 10/04/18 18:03 Last Admin: 10/04/18 18:10 Dose: 75 ml Ondansetron HCl (Zofran Odt) 4 mg PO Q6H PRN PRN Reason: nausea, able to take PO Oxycodone HCl (Oxycodone) 5 mg PO Q4H PRN PRN Reason: Pain (moderate 4-6) Last Admin: 10/01/18 08:10 Dose: 5 mg Triamcinolone Acetonide (Triamcinolone Acetonide 0.1% Crm) 0 gm TOP BID [facility] - Exam General: Reports: Alert, Oriented Lungs: Reports: Clear to Auscultation, Normal Respiratory Effort Cardiovascular: Reports: Regular Rate, Regular Rhythm GI/Abdominal Exam: Normal Bowel Sounds, Soft, Non-Tender Skin: Reports: Warm, Dry, Intact Neurological: Reports: No New Focal Deficit Psy/Mental Status: Reports: Alert, Normal Affect
== END 2018-10-08 17:00 | disposition home or self-care (01) | DRG 757 ==
LOC: UNDOADMIN 15:13 → DL.MS 15:13 → EEVIPCON 16:17
PROVIDERS: ADMIT Family Medicine; ATTEND Internal Medicine
DX: N73.9 Female pelvic inflammatory disease, unspecified (principal); I26.90 Septic pulmonary embolism without acute cor pulmonale; D58.9 Hereditary hemolytic anemia, unspecified; B17.10 Acute hepatitis C without hepatic coma; B15.9 Hepatitis A without hepatic coma; D53.9 Nutritional anemia, unspecified
CPT/HCPCS: 36415; 74177; 80048; 82550; 82565; 82607; 82728; 82746; 83540; 83550; 84460; 85018; 85025; 85651; 86140; 86592; 87389; A9270-GY; J0690; J0878; J7050; Q0163; Q9967; S0032

== ENCOUNTER 2018-11-05 19:16 | Emergency (ER) | payer MEDICAID ==
[2018-11-05 19:37] VITALS: BP 127/73
== END 2018-11-06 01:18 | disposition left against medical advice (07) ==
LOC: DL.ED 19:16
DX: Z53.21 Procedure and treatment not carried out due to patient leaving prior to being seen by health care provider (principal)

== ENCOUNTER 2018-11-06 11:06 | Emergency (ER) | payer MEDICAID ==
--- NOTE | 2018-11-06 11:47 | EDM.PDOC ---
ED HPI GENERAL MEDICAL PROBLEM - General Chief Complaint: General Stated Complaint: UTI Time Seen by Provider: 11/06/18 11:35 Source of Information: Reports: Patient, Old Records, RN, RN Notes Reviewed History Limitations: Reports: No Limitations - History of Present Illness INITIAL COMMENTS - FREE TEXT/NARRATIVE: Pt presents to ER from home by POV with report that she was here yesterday and got tired of waiting to be transferred to [facility] in so she left and went home. Today pt was contacted by some one at [facility] and told to go to the ER to be transferred to [place]. Rebeca Dickerson GAUGE CHECKER called this ER and left a message with Cherie Burdick RN stating pt has a UTI, positive blood cultures, and osteomyelitis of the lumbar spine. Pt states she recently completed outpt. IV antibiotics for bacterial endocarditis. Pt denies fevers. Admits to chills, and low back pain. Records indicate Hx of Hep C, and IV drug abuse. Onset: Unknown/Unsure Duration: Constant Location: Reports: Back Quality: Reports: Ache Severity: Severe Improves with: Reports: None Worsens with: Reports: Movement Associated Symptoms: Reports: No Other Symptoms Lower Back Pain Score (Numeric/FACES): 8 - Related Data Allergies Allergy/AdvReac Type Severity Reaction Status Date / Time nafcillin Allergy Rash Verified 11/06/18 11:29 Home Meds: Home Meds Ferrous Sulfate 325 mg PO BIDMEALS 09/30/18 [History] Ibuprofen [Motrin] 400 mg PO Q8HR PRN 11/06/18 [History] Past Medical History - Past Health History Medical/Surgical History: Denies Medical/Surgical History HEENT History: Reports: None Cardiovascular History: Reports: Bacterial Endocarditis Respiratory History: Reports: None Gastrointestinal History: Reports: None Genitourinary History: Reports: None, Pyelonephritis, Other (See Below) Other Genitourinary History: pelvic absess 2019 and pylonephritis 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 Endocrine/Metabolic History: Reports: None Hematologic History: Reports: Anemia Immunologic History: Reports: None Oncologic (Cancer) History: Reports: None Dermatologic History: Reports: None - Infectious Disease History Infectious Disease History: Reports: Chicken Pox Other Infectious Disease History: MSSA bacteremia - Past Surgical History Head Surgeries/Procedures: Reports: None Female Surgical History: Reports: Section Social & Family History - Family History Family Medical History: Noncontributory - Tobacco Use Smoking Status *Q: Never Smoker Second Hand Smoke Exposure: No - Caffeine Use Caffeine Use: Reports: Coffee, Energy Drinks, Soda - Recreational Drug Use Recreational Drug Use: No - Living Situation & Occupation Living situation: Reports: with Significant Other Occupation: Unemployed ED ROS GENERAL - Review of Systems Review Of Systems: ROS reveals no pertinent complaints other than HPI. ED EXAM, GENERAL - Physical Exam Exam: See Below Exam Limited By: No Limitations General Appearance: Alert, WD/WN, No Apparent Distress Throat/Mouth: Normal Voice, No Airway Compromise Head: Atraumatic, Normocephalic Neck: Normal Inspection Respiratory/Chest: No Respiratory Distress Cardiovascular: No Edema, Tachycardia GI/Abdominal: Normal Bowel Sounds, Soft, Non-Tender Back Exam: Vertebral Tenderness (lumbar). No: CVA Tenderness (L), CVA Tenderness (R) Extremities: Normal Inspection Neurological: Alert, Oriented, No Motor/Sensory Deficits Psychiatric: Normal Mood Skin Exam: Warm, Dry Course - Vital Signs Last Recorded V/S: Last Vital Signs Temp 36.9 C 11/06/18 11:19 Pulse 128 H 11/06/18 11:19 Resp 24 H 11/06/18 11:19 BP 100/57 L 11/06/18 11:19 Pulse Ox 100 11/06/18 11:19 - Orders/Labs/Meds Meds: Medications Discontinued Medications Generic Name Dose Route Start Last Admin Trade Name Yesenia PRN Reason Stop Dose Admin Hydrocodone Bitart/Acetaminophen 1 tab 11/06/18 11:55 [place] 325-10 Mg PO 11/06/18 11:56 ONETIME ONE - Re-Assessments/Exams Free Text/Narrative Re-Assessment/Exam: 11/06/18 No diagnostic work up will be obtained here, as the pt is stable and has a known diagnosis needing treatment by infectious disease at [facility], in . Departure - Departure Time of Disposition: 11:57 Disposition: DC/Tfer to Acute Hospital 02 Condition: Serious Clinical Impression: Osteomyelitis of lumbar spine, Positive blood cultures, History of hepatitis C UTI (urinary tract infection) Qualifiers: Urinary tract infection type: site unspecified Hematuria presence: without hematuria Qualified Code(s): N39.0 - Urinary tract infection, site not specified - Discharge Information *PRESCRIPTION DRUG MONITORING PROGRAM REVIEWED*: No *COPY OF PRESCRIPTION DRUG MONITORING REPORT IN PATIENT HENRY: No Forms: ED Department Discharge, Interfacility Transfer [facility]
[2018-11-06] MEDS ORDERED: Acetaminophen/HYDROcodone 325-10 MG Tab PO ONE (11:55)
[2018-11-06 12:18] VITALS: BP 103/61
== END 2018-11-06 12:32 ==
LOC: DL.ED 11:06
DX: N39.0 Urinary tract infection, site not specified (principal); M46.26 Osteomyelitis of vertebra, lumbar region; R78.81 Bacteremia; Z88.8 Allergy status to other drugs, medicaments and biological substances
CPT/HCPCS: 99282; A9270

== ENCOUNTER 2020-02-26 10:17 | Emergency (ER) | payer MEDICAID ==
[2020-02-26 10:29] VITALS: BP 120/77; PULSE 121
[2020-02-26] MEDS ORDERED: cefTRIAXone 1 GM Vial IM ONE (10:35)
[2020-02-26] MEDS ORDERED: Lidocaine 1% 30 ML SDV INJECT ONE (10:40)
--- NOTE | 2020-02-26 10:48 | EDM.PDOC ---
Scribed by Natividad Alberts 02/26/20 1047 for Tabatha Quinones MD ED HPI GENERAL MEDICAL PROBLEM - General Chief Complaint: Skin Complaint Stated Complaint: [id number] BOILS ON ARM Time Seen by Provider: 02/26/20 10:30 Source of Information: Reports: Patient, RN, RN Notes Reviewed History Limitations: Reports: No Limitations - History of Present Illness INITIAL COMMENTS - FREE TEXT/NARRATIVE: Patient presents to ED stating she has a rash on her right hand as well as swelling of the left hand. It started with a few spots on her right hand 2 days ago and then she noticed the spots on her left hand yesterday and the swelling started this morning. She tried soaking it in warm water with no relief. No fevers or chills. She has never had this before. Her son has similar spots that appeared 2 days before hers. Onset: Gradual Duration: Getting Worse Location: Reports: Upper Extremity, Right, Lower Extremity, Right Quality: Reports: Ache Severity: Moderate Improves with: Reports: None Worsens with: Reports: None Associated Symptoms: Reports: No Other Symptoms Left Hand Pain Score (Numeric/FACES): 7 - Related Data Allergies Allergy/AdvReac Type Severity Reaction Status Date / Time nafcillin Allergy Rash Verified 02/26/20 10:28 Home Meds: Home Meds Ibuprofen [Motrin] 400 mg PO Q8HR PRN 11/06/18 [History] Past Medical History - Past Health History Medical/Surgical History: Denies Medical/Surgical History HEENT History: Reports: None Cardiovascular History: Reports: Bacterial Endocarditis Respiratory History: Reports: None Gastrointestinal History: Reports: None Genitourinary History: Reports: None, Pyelonephritis, Other (See Below) Other Genitourinary History: pelvic absess 2019 and pylonephritis 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 Endocrine/Metabolic History: Reports: None Hematologic History: Reports: Anemia Immunologic History: Reports: None Oncologic (Cancer) History: Reports: None Dermatologic History: Reports: None - Infectious Disease History Infectious Disease History: Reports: Chicken Pox Other Infectious Disease History: MSSA bacteremia - Past Surgical History Head Surgeries/Procedures: Reports: None Female Surgical History: Reports: Section Social & Family History - Family History Family Medical History: Noncontributory - Caffeine Use Caffeine Use: Reports: Coffee, Energy Drinks, Soda - Living Situation & Occupation Living situation: Reports: with Significant Other Occupation: Unemployed ED ROS GENERAL - Review of Systems Review Of Systems: Comprehensive ROS is negative, except as noted in HPI. ED EXAM, SKIN/RASH Exam: See Below Exam Limited By: No Limitations General Appearance: Alert, WD/WN, No Apparent Distress Eye Exam: Bilateral Eye: Normal Inspection Ears: Normal External Exam, Normal Canal, Hearing Grossly Normal, Normal TMs Nose: Normal Inspection, Normal Mucosa, No Blood Throat/Mouth: Normal Inspection, Normal Lips, Normal Teeth, Normal Gums, Normal Oropharynx, Normal Voice, No Airway Compromise Head: Atraumatic, Normocephalic Neck: Normal Inspection, Supple, Non-Tender, Full Range of Motion Respiratory/Chest: No Respiratory Distress, Lungs Clear, Normal Breath Sounds, No Accessory Muscle Use, Chest Non-Tender Cardiovascular: Normal Peripheral Pulses, Regular Rate, Rhythm, No Edema, No Gallop, No JVD, No Murmur, No Rub GI/Abdominal: Normal Bowel Sounds, Soft, Non-Tender, No Organomegaly, No Distention, No Abnormal Bruit, No Mass (Female) Exam: Deferred Rectal (Female) Exam: Deferred Back Exam: Normal Inspection, Full Range of Motion, NT Extremities: Normal Inspection, Normal Range of Motion, Non-Tender, No Pedal Edema, Normal Capillary Refill Neurological: Alert, Oriented, CN II-XII Intact, Normal Cognition, Normal Gait, Normal Reflexes, No Motor/Sensory Deficits Psychiatric: Normal Affect, Normal Mood Skin: Other (right hand with 2 pustules noted on radial aspect of dorsal hand. Left hand with 2 pustules on radial aspect of dorsal hand with moderate swelling from the MCP joint to the wrist. Moderate erythema. Warm and tender to touch. No fluctuanace appreciated. ) Course - Vital Signs Last Recorded V/S: Last Vital Signs Temp 98.0 F 02/26/20 10:28 Pulse 121 H 02/26/20 10:28 Resp 18 02/26/20 10:28 BP 120/77 02/26/20 10:28 Pulse Ox 99 02/26/20 10:28 - Orders/Labs/Meds Meds: Medications Discontinued Medications Generic Name Dose Route Start Last Admin Trade Name Yesenia PRN Reason Stop Dose Admin Ceftriaxone Sodium 1 gm 02/26/20 10:35 02/26/20 10:44 Rocephin IM 02/26/20 10:36 1 gm ONETIME ONE Administration Lidocaine HCl 30 ml 02/26/20 10:40 Xylocaine-Mpf 1% INJECT 02/26/20 10:41 ONETIME ONE Departure - Departure Time of Disposition: 10:46 Disposition: Home, Self-Care 01 Condition: Good Clinical Impression: Abscess, Cellulitis of hand - Discharge Information *PRESCRIPTION DRUG MONITORING PROGRAM REVIEWED*: Not Applicable *COPY OF PRESCRIPTION DRUG MONITORING REPORT IN PATIENT HENRY: Not Applicable Instructions: Cellulitis, Adult, [id number] Forms: ED Department Discharge Sepsis Event Note (ED) - Evaluation Sepsis Screening Result: No Definite Risk - Focused Exam Vital Signs: Vital Signs Temp Pulse Resp BP Pulse Ox 02/26/20 10:28 98.0 F 121 H 18 120/77 99 - Assessment/Plan Assessment:: 34 yo female with multiple small abscesses on her hands and acute cellulitis of her left hand. Plan: rocephin in the ER Rx for bactrim BID for 10 days reviewed reasons to call/return to the clinic fu with PCP in 5-7 days I have read and agree with the documentation that has been completed regarding this visit. By signing this record, I attest that the documentation was completed in my physical presence and is an accurate record of the encounter.
== END 2020-02-26 11:04 | disposition home or self-care (01) ==
LOC: DL.ED 10:17
DX: L02.511 Cutaneous abscess of right hand (principal); L02.512 Cutaneous abscess of left hand; L03.114 Cellulitis of left upper limb; Z88.1 Allergy status to other antibiotic agents
CPT/HCPCS: 96372; 99283; J0696